=== PATIENT | female | born 1990 | race Two or more races ===

== ENCOUNTER 2018-01-23 08:45 | Emergency (ER) | payer MEDICARE, OTHER ==
[2018-01-23 08:51] VITALS: TEMP 97.7; BMI 23.4
--- NOTE | 2018-01-23 08:57 | PDOC ---
History of Present Illness - General Chief Complaint: Blood Sugar Problem Stated Complaint: LOW BLOOD SUGAR Time Seen by Provider: 01/23/18 08:46 - History of Present Illness Initial Comments: 01/23/18 08:57 27f with pmh of Dm1 and asthma BIBEMS from home after she was found unresponsive on a recliner by father this morning. EMS got to the patient 30min later, found to be hypoglycemic on the 40's, given 1mg of glucagon and transported to the ER. Second fingerstick in the 70's. Patient was apneic on presentation, awakened by sternal rub, took a deep breath and started screaming , agitated before calming down. Ate dinner of cereal last night, before which fingerstick was 116, no change in medication, then fell asleep. No previous episode of hypoglycemia since she was a child. 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 Patient now comfortbale eating. Past History - Past Medical History Allergies/Adverse Reactions: Allergies Allergy/AdvReac Type Severity Reaction Status Date / Time ondansetron [From Zofran] Allergy Difficulty Verified 01/23/18 08:49 Breathing Penicillins Allergy Hives Verified 01/23/18 08:49 Home Medications: Ambulatory Orders Gabapentin 900 mg PO HS PRN 01/23/18 Gabapentin [Neurontin] 300 mg PO HS 01/23/18 Insulin (Levemir) [Levemir Vial] 45 unit SQ HS 01/23/18 Insulin Aspart [Novolog] 20 unit SQ ASDIR 01/23/18 Review of Systems - Review of Systems Able to Perform ROS?: Yes Is the patient limited Irish proficient: No Constitutional: No: Symptoms Reported HEENTM: No: Symptoms Reported Respiratory: No: Symptoms reported Cardiac (ROS): No: Symptoms Reported ABD/GI: No: Symptoms Reported : No: Symptoms Reported Musculoskeletal: No: Symptoms Reported Integumentary: No: Symptoms Reported *Physical Exam - Physical Exam General Appearance: Yes: Nourished, Appropriately Dressed. No: Apparent Distress HEENT: positive: EOMI, FRANCOIS, Normal ENT Inspection Respiratory/Chest: positive: Lungs Clear, Normal Breath Sounds. negative: Chest Tender, Respiratory Distress Cardiovascular: positive: Regular Rhythm, S1, S2, Tachycardia Gastrointestinal/Abdominal: positive: Normal Bowel Sounds, Flat, Soft. negative : Tender Extremity: positive: Normal Capillary Refill, Normal Inspection Integumentary: positive: Normal Color, Warm Neurologic: positive: Fully Oriented, Alert, Normal Mood/Affect, Normal Response , Motor Strength 06/17 ED Treatment Course - LABORATORY CBC & Chemistry Diagram: 01/23/18 09:08 01/23/18 09:08 Medical Decision Making - Medical Decision Making 01/23/18 12:25 27F with episode of hypoglymia. Fingerstick at 9: 137, at 10:30 360 Will rehydrate with 2L NS Lactate 6.5 We will make sure she doesn't have rhabdo even though she was on recliner all night. Repeat lactate. 01/23/18 14:44 repeat lactate 1.5. Normal Ck . Patient ok to be dispo after eating. *DC/Admit/Observation/Transfer Diagnosis at time of Disposition: Hypoglycemia - Discharge Dispostion Disposition: HOME Condition at time of disposition: Improved Decision to Admit order: No - Referrals - Patient Instructions Printed Discharge Instructions: DI for Hyperglycemia -- Adult Additional Instructions: Follow up with your primary care provider within the next 3-4 days. Come back to the emergency department for any new, worsening or concerning symptoms. - Post Discharge Activity
[2018-01-23] MEDS ORDERED: SODIUM CHLORIDE 1,000 ML IV STA ×2 (08:58→10:41)
[2018-01-23] MEDS ORDERED: ACETAMINOPHEN 1000 MG/100 ML VIAL (NON FORMULARY) IVPB ONE (08:59)
[2018-01-23] MEDS ORDERED: METOCLOPRAMIDE HCL INJECTION 10 MG/2 ML VIAL IVPUSH ONE (09:01)
[2018-01-23] MEDS ORDERED: GlUCAGON HUMAN RECOMBINANT 1 MG/VIAL ONE (09:03)
[2018-01-23] MEDS ORDERED: METOCLOPRAMIDE HCL INJECTION 10 MG/2 ML VIAL ONE (09:04)
[2018-01-23] MEDS ORDERED: ACETAMINOPHEN INJECTION 100 ML IVPB ONE (09:05)
--- NOTE | 2018-01-23 09:31 | PDOC ---
Attending Attestation - Resident Resident Name: Domingo Marvin - ED Attending Attestation I have performed the following: I have examined & evaluated the patient, The case was reviewed & discussed with the resident, I agree w/resident's findings & plan - HPI HPI: 01/23/18 09:21 27-year-old female with history of type 1 insulin-dependent diabetes presents brought in by EMS for unresponsiveness. Patient went to sleep last night, otherwise in usual state of normal health, this morning family had difficulty arousing her so they prompted 911. On arrival, patient was unresponsive with glucose of 50, she was given glucagon with improved mental status and rule out but still sleepy. On arrival here, somnolent but arousable to physical stimuli. Patient reports her insulin levels were increased about 2 weeks ago, had a small cereal bowl last night and recalls going sleep on her recliner but does not have any further recollections. No complaints at this time, no headache or chest pain or abdominal pain, no recent infectious complaints. Had history of hypoglycemic seizures as a child, otherwise no primary seizure disorder. - Physicial Exam PE: 01/23/18 09:31 Vitals within normal limits, glucose 134 in the ED Head is atraumatic, pupils are equal and reactive Conversant, oriented, dry mucosa Heart is regular, lungs are clear Abdomen soft/nontender/nondistended Neurologically intact - Medical Decision Making 01/23/18 09:31 27-year-old female type 1 insulin-dependent diabetic presents with unresponsiveness secondary to hypoglycemia, improved after glucagon and normalization of her glucose levels. Low suspicion for seizure though possible, neurologically intact now with normal vital signs no evidence of infection. Check labs including lactate and CK IV fluids, provide food lacing string cutter and reassess 01/23/18 14:34 labs wnl, Cr normal, CK normal, no infection or signs of sepsis. lactate elevated, received iv fluids and normalized to 1.6. pt has been tolerating PO, glucose levels now >300. feels markedly improved, ambulating comfortably, has no complaints. presentation likely 2/2 hypoglycemia 2/2 insulin and low PO intake last night, now resolved. agrees with d/c plan, understands return criteria. Heart Score/ECG Review #1 ECG reviewed & interpreted by me at: 09:22 General ECG Interpretation: Sinus Rhythm, Normal Rate (66), Normal Intervals ( qtc 463), No acute ischemic changes
[2018-01-23 09:44] LABS: HEMATOCRIT 39.7 % (32.4-45.2); HEMOGLOBIN 13.3 GM/dL (10.7-15.3); MCH 31.3 pg (25.7-33.7); MCHC 33.5 g/dl (32.0-36.0); MEAN CELL VOLUME 93.3 fl (80-96); MEAN PLT VOLUME 9.1 fl (7.5-11.1); PLATELET COUNT 294 K/MM3 (134-434); RBC 4.25 M/mm3 (3.60-5.2); RDW 12.9 % (11.6-15.6)
[2018-01-23 09:51] LABS: URINE APPEARANCE CLOUDY; URINE BILIRUBIN NEGATIVE (<2.0 mg/dL); URINE COLOR RED; URINE GLUCOSE (UA) 3+ (NEGATIVE); URINE KETONE NEGATIVE (NEGATIVE); URINE LEUK ESTERASE TRACE (NEGATIVE); URINE NITRITE NEGATIVE (NEGATIVE); URINE PROTEIN 2+ (NEGATIVE); URINE UROBILINOGEN NEGATIVE mg/dL (0.2-1.0)
[2018-01-23 09:58] LABS: INR 0.96 (0.83-1.09); PROTHROMBIN TIME (PATIENT) 11.3 SEC (9.7-13.0)
[2018-01-23 10:00] LABS: ACTIVATED PTT 32.3 SECONDS (25.2-36.5)
[2018-01-23 10:03] LABS: EPI CELLS MANY /HPF (FEW)
[2018-01-23 10:23] LABS: ALK PHOS 164 U/L (45-117); ANION GAP 12 MMOL/L (8-16); BILIRUBIN,TOTAL 0.4 mg/dL (0.2-1); BLOOD UREA NITROGEN 14 mg/dL (7-18); CALCIUM 8.6 mg/dL (8.5-10.1); CHLORIDE 102 mmol/L (98-107); CO2 24 mmol/L (21-32); CREATININE 0.7 mg/dL (0.55-1.3); GLUCOSE,RANDOM 137 mg/dL (74-106); POTASSIUM 4.7 mmol/L (3.5-5.1); SGOT/AST 83 U/L (15-37); SGPT/ALT 64 U/L (13-61); SODIUM 138 mmol/L (136-145); TOT PROT 8.2 g/dl (6.4-8.2)
[2018-01-23] MEDS ORDERED: ALPRAZolam 0.25 MG TABLET ONE (10:34)
[2018-01-23] MEDS ORDERED: ALPRAZolam 0.25 MG TABLET PO ONE (10:34)
[2018-01-23 10:35] LABS: ACETONE SERUM NEGATIVE (NEGATIVE)
--- NOTE | 2018-01-23 12:55 | EKG ---
Test Reason : Blood Pressure : / mmHG Vent. Rate : 066 BPM Atrial Rate : 066 BPM P-R Int : 128 ms QRS Dur : 078 ms QT Int : 442 ms P-R-T Axes : 063 022 006 degrees QTc Int : 463 ms POOR DATA QUALITY, INTERPRETATION MAY BE ADVERSELY AFFECTED NORMAL SINUS RHYTHM NORMAL ECG NO PREVIOUS ECGS AVAILABLE Confirmed by Aidan Wu ([id number]) on 01/23/2018 12:55:35 PM Referred By: Confirmed By:Aidan Wu
[2018-01-23 14:54] VITALS: BP 124/76; PULSE 64
== END 2018-01-23 16:05 | disposition home or self-care (01) ==
LOC: JER 08:45
PROC: 3E033NZ Introduction of Analgesics, Hypnotics, Sedatives into Peripheral Vein, Percutaneous Approach (ICD-10-PCS; principal; 2018-01-23)
PROC: 3E033GC Introduction of Other Therapeutic Substance into Peripheral Vein, Percutaneous Approach (ICD-10-PCS; 2018-01-23)
PROC: 3E0337Z Introduction of Electrolytic and Water Balance Substance into Peripheral Vein, Percutaneous Approach (ICD-10-PCS; 2018-01-23)
DX: E10.649 Type 1 diabetes mellitus with hypoglycemia without coma (principal); Z79.4 Long term (current) use of insulin
CPT/HCPCS: 36415; 71045-TC-FY; 80053; 81003; 81015; 82009; 82550; 82962; 83525; 83527; 83605; 84484; 84703; 85027; 85610; 85730; 87086; 87186; 93005; 93010; 96361; 96374; 96375; 99283-25; J0131; J7030